=== PATIENT | female | born 1940 | race Caucasian/White ===

== ENCOUNTER 2016-10-06 08:23 | Emergency (ER) | payer MEDICARE, OTHER ==
[~2016-10-06] VITALS: Ht 165.1 cm; Wt 50.3 kg
[~2016-10-06 08:23] MED LIST: ACET-10 PO; AMLO10TA2 PO; ATOR10TA60 PO; CETI10TA16 PO; CHOL100013 PO; CYAN10005 PO; CYAN1TAB19 PO; DIAZ2TAB PO; DIAZ2TAB3 PO; DIVA500T17 PO; HYDR25TA PO; HYDR50CA2 PO; IMIP25TA PO; IMIP25TA35 PO; INSU100I17 SQ; INSU100V13 SQ; LEVO1CAP3 PO; LISI40TA PO; LOPE2CAP PO; LORA10TA3 PO; METF750T2 PO; MIRT15TA3 PO; NEOM1PAC TP; POTA10TA31 PO; PRAV40TA2 PO; PSYL0.526 PO; PSYL1PAC PO; RISP2TAB3 PO; SENN8.6T99 PO
[2016-10-06 08:29] VITALS: BP 187/79
--- NOTE | 2016-10-06 08:49 | PHYS DOC ---
Past Medical History Past Medical History: Depression, Diabetes-Type II, Hypertension Additional Past Medical Histor: INSOMNIA, HYPOKALEMIA Past Surgical History: Other Additional Past Surgical Histo: HERNIA REPAIR Alcohol Use: None Drug Use: None Adult General Chief Complaint Chief Complaint: MECHANICAL FALL HPI HPI Patient is a 76 year old female presenting to the emergency department for evaluation of facial and head pain status post fall shortly prior to arrival. She says that her shoes do not fit very well and she tripped over her own feet and fell forward landing on her knees bilaterally and her face. She denies any loss of consciousness and she denies taking any blood thinners. She has multiple abrasions and says that her tetanus status is up-to-date. She is pleasant and in no obvious distress with normal vital signs. She was refusing anything for pain when offered. Review of Systems Review of Systems Constitutional: Denies fever or chills [] Eyes: Denies change in visual acuity, redness, or eye pain [] HENT: Denies nasal congestion or sore throat [] Respiratory: Denies cough or shortness of breath [] Cardiovascular: No additional information not addressed in HPI [] GI: Denies abdominal pain, nausea, vomiting, bloody stools or diarrhea [] : Denies dysuria or hematuria [] Musculoskeletal: Denies back pain or joint pain [] Integument: + abrasions Neurologic: + headache. No focal weakness or sensory changes [] Allergies Allergies Allergies Coded Allergies Type Severity Reaction Last Updated Verified No Known Drug Allergies 05/23/14 No Physical Exam Physical Exam Constitutional: Well developed, well nourished, no acute distress, non-toxic appearance. [] HENT: Normocephalic, right periorbital contusion with infraorbital abrasion Eyes: PERRLA, EOMI, conjunctiva normal, no discharge. [] Neck: Normal range of motion, no tenderness, supple, no stridor. [] Cardiovascular:Heart rate regular rhythm, no murmur [] Lungs & Thorax: Bilateral breath sounds clear to auscultation [] Abdomen: Bowel sounds normal, soft, no tenderness, no masses, no pulsatile masses. [] Skin: Abrasions to bilateral knees Back: No tenderness, no CVA tenderness. [] Extremities: Good range of motion of all joints with no limitation and range of motion Neurologic: Alert and oriented X 3, normal motor function, normal sensory function, no focal deficits noted. [] Current Patient Data Vital Signs Vital Signs Date Time Temp Pulse Resp B/P (MAP) Pulse Ox O2 Delivery O2 Flow Rate FiO2 10/06/16 08:29 98.3 100 20 187/79 (115) 95 Room Air 98.3 EKG EKG [] Radiology/Procedures Radiology/Procedures Indication fall. Head and neck pain. Injury. The head and cervical spine were evaluated. Images of the cervical spine were reformatted in the coronal and sagittal planes. Note is made of a previous examination of the head 02/26/2015. CT head: Findings No acute or significant calvarial finding is seen. The visualized paranasal sinuses appear normal. There is no subdural or epidural hematoma. There is underlying atrophy. Lucencies, compatible with microvascular disease, are noted in the deep white matter similar to the previous exam. Acute finding is not seen. There has not been a significant change compared to the previous exam. CT cervical spine: Findings The lung apices are clear. There are nodules in both lobes of the thyroid. These are probably incidental but could be further evaluated with nonemergent ultrasound. The appearance is similar to a study 02/26/2015. A significant soft tissue finding in the neck is not seen. Review of axial images shows no fracture. There are degenerative changes in the cervical spine. Review of reformatted images in the coronal and sagittal planes confirms mild degenerative change but shows no evidence of fracture IMPRESSION: Chronic changes in the head. No acute finding seen. Chronic spondylitic changes in the cervical spine. No acute finding in the cervical spine seen PQRS Compliance Statement: One or more of the following individualized dose reduction techniques were utilized for this examination: 1. Automated exposure control 2. Adjustment of the mA and/or kV according to patient size 3. Use of iterative reconstruction technique DICTATED and SIGNED BY: LEONOR PRASAD MD DATE: 10/06/16 0902 Course & Med Decision Making Course & Med Decision Making CT head and cervical spine is negative. She is at her neurologic baseline and has no further complaints of she'll be discharged with instructions to be careful when walking by appropriately fitting shoes and follow with her primary care provider to see if she needs any ambulation assistance devices. Patient aware and agreeable with plan and verbalized understanding of the need for short -term follow-up and strict ER return precautions discussed including worsening pain weakness or other general concerns. Dragon Disclaimer Dragon Disclaimer This electronic medical record was generated, in whole or in part, using a voice recognition dictation system. Departure Departure Impression: Primary Impression: Closed head injury Disposition: HOME, SELF-CARE Condition: GOOD Referrals: AIDEN HICKEY MD (PCP) Patient Instructions: Concussion and Brain Injury Problem Qualifiers Primary Impression: Closed head injury Encounter type: initial encounter Qualified Codes: S09.90XA - Unspecified injury of head, initial encounter MARISELA WALKER DO Oct 06, 2016 08:49
--- NOTE | 2016-10-06 09:15 | RAD ---
Indication fall. Head and neck pain. Injury. The head and cervical spine were evaluated. Images of the cervical spine were reformatted in the coronal and sagittal planes. Note is made of a previous examination of the head 02/26/2015. CT head: Findings No acute or significant calvarial finding is seen. The visualized paranasal sinuses appear normal. There is no subdural or epidural hematoma. There is underlying atrophy. Lucencies, compatible with microvascular disease, are noted in the deep white matter similar to the previous exam. Acute finding is not seen. There has not been a significant change compared to the previous exam. CT cervical spine: Findings The lung apices are clear. There are nodules in both lobes of the thyroid. These are probably incidental but could be further evaluated with nonemergent ultrasound. The appearance is similar to a study 02/26/2015. A significant soft tissue finding in the neck is not seen. Review of axial images shows no fracture. There are degenerative changes in the cervical spine. Review of reformatted images in the coronal and sagittal planes confirms mild degenerative change but shows no evidence of fracture IMPRESSION: Chronic changes in the head. No acute finding seen. Chronic spondylitic changes in the cervical spine. No acute finding in the cervical spine seen PQRS Compliance Statement: One or more of the following individualized dose reduction techniques were utilized for this examination: 1. Automated exposure control 2. Adjustment of the mA and/or kV according to patient size 3. Use of iterative reconstruction technique
== END 2016-10-06 09:34 | disposition home or self-care (01) ==
LOC: ER 08:23
DX: S00.11XA Contusion of right eyelid and periocular area, initial encounter (principal); S80.212A Abrasion, left knee, initial encounter; S80.211A Abrasion, right knee, initial encounter; S09.90XA Unspecified injury of head, initial encounter; I10 Essential (primary) hypertension; F32.9 Major depressive disorder, single episode, unspecified; E11.9 Type 2 diabetes mellitus without complications; G47.00 Insomnia, unspecified; W01.0XXA Fall on same level from slipping, tripping and stumbling without subsequent striking against object, initial encounter; Y93.89 Activity, other specified; Y92.89 Other specified places as the place of occurrence of the external cause; Y99.8 Other external cause status
CPT/HCPCS: 70450; 72125; 99284-25

== ENCOUNTER 2018-07-01 22:01 | Emergency (ER) | payer OTHER ==
[~2018-07-01] VITALS: Ht 162.6 cm; Wt 58.1 kg
[~2018-07-01 22:01] MED LIST changes: -AMLO10TA2 PO; +AMLO10TA8 PO; +FLUT16SP NS; +FOLI5TAB PO; +GLIP2.5T4 PO; +HYDR-2761 PO; +INSU100I13 SQ; +LISI-130 PO; -LISI40TA PO; +LOPE2TAB56 PO; +POTA10TA12 PO; +PSYL3.4P PO; +TIZA4TAB PO
--- NOTE | 2018-07-02 00:25 | PHYS DOC ---
Past Medical History Past Medical History: Diabetes-Type II, Hypertension Additional Past Medical Histor: INSOMNIA, HYPOKALEMIA Past Surgical History: Other Additional Past Surgical Histo: HERNIA REPAIR Alcohol Use: None Drug Use: None Adult General Chief Complaint Chief Complaint: ACCIDENTAL INGESTION HPI HPI 78 y/o female presents via EMS after [facility] accidentally gave patient another patient's nighttime medications. Patient received the following mediations: probiotic, atorvastatin, ezetimibe, duloxetine, Mucinex DM , metoprolol, lactulose, gabapentin, and sertraline. Patient denies any complaint. Reports she feels fine. Covering physician at [facility] sent patient to be further evaluated. Review of Systems Review of Systems Constitutional: Denies fever or chills [] Eyes: Denies change in visual acuity, redness, or eye pain [] HENT: Denies nasal congestion or sore throat [] Respiratory: Denies cough or shortness of breath [] Cardiovascular: Denies chest pain or palpitations GI: Denies abdominal pain, nausea, vomiting, or diarrhea [] : Denies dysuria or hematuria [] Musculoskeletal: Denies back pain or joint pain [] Integument: Denies rash or skin lesions [] Neurologic: Denies headache, focal weakness or sensory changes [] Complete systems were reviewed and found to be within normal limits, except as documented in this note. Allergies Allergies Allergies Coded Allergies Type Severity Reaction Last Updated Verified No Known Drug Allergies 05/23/14 No Physical Exam Physical Exam Constitutional: Well developed, well nourished, no acute distress, non-toxic appearance. [] HENT: Normocephalic, atraumatic, oropharynx moist Eyes: PERRL, EOMI, conjunctiva normal, no discharge. [] Neck: Normal range of motion, no tenderness, supple Cardiovascular: Heart rate regular rhythm, no murmur [] Lungs & Thorax: Bilateral breath sounds clear to auscultation [] Abdomen: Soft, no tenderness Skin: Warm, dry, no erythema, no rash. [] Extremities: No tenderness, ROM intact, no edema. [] Neurologic: Alert and oriented X 3, normal motor function, normal sensory function, no focal deficits noted. [] Current Patient Data Vital Signs Vital Signs Date Time Temp Pulse Resp B/P (MAP) Pulse Ox O2 Delivery O2 Flow Rate FiO2 07/02/18 00:45 72 16 109/57 (74) 94 Room Air 07/01/18 23:42 2.0 07/01/18 22:01 98.4 98.4 EKG EKG @ 0002 Sinus bradycardia at 53bpm, NO ST elevation, nonspecific t wave inversion aVL, QRS 86ms, QT/QTc 482/455ms Radiology/Procedures Radiology/Procedures [] Course & Med Decision Making Course & Med Decision Making Patient presents from ECF after accidentally giving patient the wrong medications prior to arrival. Patient denies current complaint. Discussed case with poison control who reports all dosing nontoxic. Recommend short term ED observation for signs of bradycardia and/or hypotension. Patient's vital stable. EKG without acute process. Patient monitored in ED. Patient stable for discharge back to ECF. Discussed findings and plan with patient, who acknowledges understanding and agreement. Dragon Disclaimer Dragon Disclaimer This electronic medical record was generated, in whole or in part, using a voice recognition dictation system. Departure Departure Impression: Primary Impression: Accidental overdose Disposition: HOME, SELF-CARE (back to ECF) Condition: STABLE Referrals: AIDEN HICKEY MD (PCP) Patient Instructions: Overdose, Accidental, Overdose, Adult Additional Instructions: PLEASE DOUBLE CHECK MEDICATIONS TO ENSURE THE CORRECT PATIENT RECEIVES THEIR MEDICATIONS Problem Qualifiers Primary Impression: Accidental overdose Encounter type: initial encounter Qualified Codes: T50.901A - Poisoning by unspecified drugs, medicaments and biological substances, accidental ( unintentional), initial encounter ALISA ABEBE DO Jul 02, 2018 00:25
[2018-07-02 00:45] VITALS: BP 109/57
--- NOTE | 2018-07-02 06:52 | EKG ---
[facility] [address] [place] [address] Test Date: 2018-07-02 Test Time: 00:02:07 Pat Name: DANNY CADENA Department: Room: Gender: F Speech/Language Therapist: : 1940 Requested By: ALISA ABEBE Order Number: [id number] Reading MD: Colin Salazar MD Measurements Intervals [place] Rate: 53 P: 39 ME: 184 QRS: -22 QRSD: 86 T: 119 QT: 482 QTc: 455 Interpretive Statements SINUS RHYTHM NON-SPECIFIC ST/T CHANGES Electronically Signed On 07-02-2018 11:24:28 [facility] [employer] by Colin Salazar MD
== END 2018-07-02 02:10 | disposition home or self-care (01) ==
LOC: ER 22:01
DX: T46.6X1A Poisoning by antihyperlipidemic and antiarteriosclerotic drugs, accidental (unintentional), initial encounter (principal); T43.211A Poisoning by selective serotonin and norepinephrine reuptake inhibitors, accidental (unintentional), initial encounter; T48.4X1A Poisoning by expectorants, accidental (unintentional), initial encounter; T44.7X1A Poisoning by beta-adrenoreceptor antagonists, accidental (unintentional), initial encounter; T47.3X1A Poisoning by saline and osmotic laxatives, accidental (unintentional), initial encounter; T42.6X1A Poisoning by other antiepileptic and sedative-hypnotic drugs, accidental (unintentional), initial encounter; T43.221A Poisoning by selective serotonin reuptake inhibitors, accidental (unintentional), initial encounter; T50.991A Poisoning by other drugs, medicaments and biological substances, accidental (unintentional), initial encounter; I10 Essential (primary) hypertension; E11.9 Type 2 diabetes mellitus without complications; Y92.89 Other specified places as the place of occurrence of the external cause
CPT/HCPCS: 93005; 99284; 99285

== ENCOUNTER 2018-07-02 04:44 | Emergency (ER) | payer OTHER ==
[~2018-07-02] VITALS: Ht 152.4 cm; Wt 58.1 kg
--- NOTE | 2018-07-02 06:10 | PHYS DOC ---
Past Medical History Past Medical History: Dementia, Diabetes-Type II, High Cholesterol, Hypertension Additional Past Medical Histor: INSOMNIA, HYPOKALEMIA Past Surgical History: Other Additional Past Surgical Histo: HERNIA REPAIR Additional Information: Nonsmoker Alcohol Use: None Drug Use: None Adult General Chief Complaint Chief Complaint: ALTERED MENTAL STATUS HPI HPI 78-year-old female presents for repeat visit to the ED after patient had previously been evaluated for accidental ingestion of another retirement resident's medication earlier tonight. Patient was provided with another patient's medications by retirement staff who afterwards realized the medication error and sent patient to ED for evaluation. Patient had been fully evaluated and deemed medically stable for discharge. Medical transport was utilized to transport patient back to facility. Unfortunately they were unable to get anyone to respond to the front door to return patient and did not answer multiple phone calls by both our ED staff and medical transport. Patient therefore was returned to ED. Patient denies current complaint. HPI limited due to history of dementia. Review of Systems Review of Systems ROS limited due to dementia Allergies Allergies Allergies Coded Allergies Type Severity Reaction Last Updated Verified No Known Drug Allergies 05/23/14 No Physical Exam Physical Exam Constitutional: Well developed, well nourished, no acute distress, non-toxic appearance. [] HENT: Normocephalic, atraumatic, oropharynx moist Eyes: PERRL, EOMI, conjunctiva normal, no discharge. [] Neck: Normal range of motion, supple Cardiovascular: Bradycardia, CR < 2 sec Lungs & Thorax: Bilateral breath sounds clear to auscultation [] Abdomen: Soft, no tenderness, Skin: Warm, dry, no erythema, no rash. [] ] Extremities: No tenderness, ROM intact Neurologic: Alert and oriented, normal motor function, normal sensory function, no focal deficits noted. [] EKG EKG [] Radiology/Procedures Radiology/Procedures [] Course & Med Decision Making Course & Med Decision Making Patient presents with history of accidental overdose and after medical evaluation returned due to medical transport being unable to get into nursing facility and nursing facility not answering multiple phone calls. Patient is stable condition. Denies complaint. Ultimately able to contact facility after police sent to facility to do check. Awaiting medical transport back to facility. Patient stable for discharge with outpatient follow-up with PCP. Discussed findings and plan with patient, who acknowledges understanding and agreement. Isreal Disclaimer Dragon Disclaimer This electronic medical record was generated, in whole or in part, using a voice recognition dictation system. Departure Departure Impression: Primary Impression: Accidental overdose Disposition: HOME, SELF-CARE (back to ECF) Condition: STABLE Referrals: AIDEN HICKEY MD (PCP) Patient Instructions: Overdose, Accidental, Overdose, Adult Problem Qualifiers Primary Impression: Accidental overdose Encounter type: subsequent encounter Qualified Codes: T50.901D - Poisoning by unspecified drugs, medicaments and biological substances, accidental ( unintentional), subsequent encounter ALISA ABEBE DO Jul 02, 2018 06:10
[2018-07-02 10:16] VITALS: BP 146/68
== END 2018-07-02 10:35 | disposition home or self-care (01) ==
LOC: ER 04:44
DX: T50.901D Poisoning by unspecified drugs, medicaments and biological substances, accidental (unintentional), subsequent encounter (principal); R41.82 Altered mental status, unspecified; E78.00 Pure hypercholesterolemia, unspecified; E11.9 Type 2 diabetes mellitus without complications; I10 Essential (primary) hypertension; F03.90 Unspecified dementia, unspecified severity, without behavioral disturbance, psychotic disturbance, mood disturbance, and anxiety
CPT/HCPCS: 99284

== ENCOUNTER 2018-08-06 16:19 | Emergency (ER) | payer OTHER ==
[~2018-08-06] VITALS: Ht 162.6 cm; Wt 64.4 kg
--- NOTE | 2018-08-06 16:38 | PHYS DOC ---
Past Medical History Past Medical History: Dementia, Diabetes-Type II, High Cholesterol, Hypertension Additional Past Medical Histor: INSOMNIA, HYPOKALEMIA Past Surgical History: Other Additional Past Surgical Histo: HERNIA REPAIR Alcohol Use: None Drug Use: None Adult General Chief Complaint Chief Complaint: MECHANICAL FALL HPI HPI Patient is a 78 year old female presents to the ED complaining of fall off of commode this morning. Patient lives at [facility]. Patient has a history of falls. Patient states she lost her balance and fell off the stool. Complains of pain to left hip and low back. Describes her pain as sharp. Rates her pain as 6/10. States she is unsure if she hit her head. Patient able to ambulate with assistance in the ED. Unsure if she hit her head. Denies LOC, vision changes, nausea/vomiting, use of blood thinners or symptoms prior to fall. Review of Systems Review of Systems Constitutional: Denies fever or chills [] Eyes: Denies change in visual acuity, redness, or eye pain [] HENT: Denies nasal congestion or sore throat [] Respiratory: Denies cough or shortness of breath [] Cardiovascular: No additional information not addressed in HPI [] GI: Denies abdominal pain, nausea, vomiting, bloody stools or diarrhea [] : Denies dysuria or hematuria [] Musculoskeletal: Complains of back and left hip pain. Integument: Denies rash or skin lesions [] Neurologic: Denies headache, focal weakness or sensory changes [] All other systems were reviewed and found to be within normal limits, except as documented in this note. Current Medications Current Medications Current Medications Medications (Trade) Dose Ordered Sig/Thania Start Time Stop Time Status Last Admin Dose Admin Acetaminophen/ Hydrocodone Bitart (Lortab 5/325) 1 tab 1X ONCE 08/06/18 18:45 08/06/18 18:46 DC 08/06/18 18:44 1 TAB Allergies Allergies Allergies Coded Allergies Type Severity Reaction Last Updated Verified No Known Drug Allergies 05/23/14 No Physical Exam Physical Exam Constitutional: Well developed, well nourished, no acute distress, non-toxic appearance. [] HENT: Normocephalic, atraumatic, bilateral external ears normal, oropharynx moist, no oral exudates, nose normal. [] Eyes: PERRLA, EOMI, conjunctiva normal, no discharge. [] Neck: Normal range of motion, no tenderness, supple, no stridor. [] Cardiovascular:Heart rate regular rhythm, no murmur [] Lungs & Thorax: Bilateral breath sounds clear to auscultation [] Abdomen: Bowel sounds normal, soft, no tenderness, no masses, no pulsatile masses. [] Skin: Warm, dry, no erythema, no rash. [] Back: mild left lumbar paraspinal tenderness. FROM. NV intact. No overlying skin changes. no CVA tenderness. [] Extremities: mild left lateral hip tenderness FROM. NV intact. no overlying skin changes. no cyanosis, no clubbing, ROM intact, no edema. [] Neurologic: Alert and oriented X 3, normal motor function, normal sensory function, no focal deficits noted. [] Psychologic: Affect normal, judgement normal, mood normal. [] Current Patient Data Vital Signs Vital Signs Date Time Temp Pulse Resp B/P (MAP) Pulse Ox O2 Delivery O2 Flow Rate FiO2 08/06/18 19:44 18 95 Room Air 08/06/18 19:30 74 08/06/18 16:19 98.3 154/73 (100) 98.3 EKG EKG [] Radiology/Procedures Radiology/Procedures []PROCEDURE: CT HEAD AND CERVICAL SPINE WO Examination: CT HEAD AND CERVICAL SPINE WO History: MULTIPLE FALLS, HIT HEAD, PRIORS SENT Comparison/Correlation: 10/06/2016 CT head and cervical spine without contrast Findings: Axial images of the head and cervical spine were obtained without contrast. Sagittal and coronal reformatted images provided. Chronic ischemic changes white matter is notable. No intracranial hemorrhage, midline shift, or mass effect. Cavernous carotid calcifications noted. Globes and optic nerves are unremarkable. Atlantoaxial joint degenerative remodeling is present. Mild C4-5 disc space narrowing. Moderate to severe C5-6 and C6/7 disc space narrowing. Bony encroachment on neural foramina bilaterally is mild. Vertebral body heights are adequate. Visualized soft tissues are unremarkable. Nodular appearance of the thyroid gland noted. Impression: No intracranial hemorrhage. No fracture or malalignment. Course & Med Decision Making Course & Med Decision Making Pertinent Labs and Imaging studies reviewed. (See chart for details) Imaging read by attending physician, Dr. Siddiqui. [Discussed imaging findings with patient. Patient's pain improved in the ED. States she is feeling much better. Patient able to ambulate with walker assistance, steady gait in the ED. No focal neuro deficits. Discussed symptomatic treatment and follow-up as needed. Discussed reasons to return to the ED. Patient understands and agrees with plan. Dragon Disclaimer Dragon Disclaimer This electronic medical record was generated, in whole or in part, using a voice recognition dictation system. Departure Departure Impression: Primary Impression: Hip sprain Additional Impression: Lumbar sprain Disposition: HOME, SELF-CARE Condition: IMPROVED Referrals: AIDEN HICKEY MD (PCP) Patient Instructions: Back Pain, Adult, Hip Injury Scripts Hydrocodone/Apap 5-325 (NORCO 5-325 TABLET) 1 Each Tablet 1 TAB PO BID for 4 Days, #8 TAB Prov: IKE NESBITT 08/06/18 Problem Qualifiers IKE NESBITT Aug 06, 2018 16:38
--- NOTE | 2018-08-06 17:13 | RAD ---
Examination: CT HEAD AND CERVICAL SPINE WO History: MULTIPLE FALLS, HIT HEAD, PRIORS SENT Comparison/Correlation: 10/06/2016 CT head and cervical spine without contrast Findings: Axial images of the head and cervical spine were obtained without contrast. Sagittal and coronal reformatted images provided. Chronic ischemic changes white matter is notable. No intracranial hemorrhage, midline shift, or mass effect. Cavernous carotid calcifications noted. Globes and optic nerves are unremarkable. Atlantoaxial joint degenerative remodeling is present. Mild C4-5 disc space narrowing. Moderate to severe C5-6 and C6/7 disc space narrowing. Bony encroachment on neural foramina bilaterally is mild. Vertebral body heights are adequate. Visualized soft tissues are unremarkable. Nodular appearance of the thyroid gland noted. Impression: No intracranial hemorrhage. No fracture or malalignment. PQRS Compliance Statement: One or more of the following individualized dose reduction techniques were utilized for this examination: 1. Automated exposure control 2. Adjustment of the mA and/or kV according to patient size 3. Use of iterative reconstruction technique Electronically signed by: Tony Renae MD (08/06/2018 5:10 PM) [facility]
[2018-08-06] MEDS ORDERED: HYDR-3164 PO (18:25)
[2018-08-06] MEDS ORDERED: HYDROcodone/APAP 5/325MG 1 TAB TABLET PO ONE (18:45)
[2018-08-06 19:30] VITALS: BP 162/84
--- NOTE | 2018-08-07 07:55 | RAD ---
Three-view lumbar spine series Clinical indications: Low back pain. No known injury. FINDINGS: There is an old compression fracture of T12 which has been treated with methylmethacrylate. This is unchanged from an MRI study of lumbar spine dated March 10, 2018. There is a new mild compression fracture of the superior endplate of L3. No discitis or lytic process is seen. Transverse processes are intact. Mild dextroscoliosis is seen. IMPRESSION: New mild compression fracture of the superior endplate of L3. Electronically signed by: Wisam Mcghee MD (08/07/2018 7:52 AM) [facility]
--- NOTE | 2018-08-07 08:00 | RAD ---
Left hip with pelvis radiograph 08/06/2018 4:51 PM INDICATION: Left hip pain with no known injury COMPARISON: None available. TECHNIQUE: AP view the pelvis and 2 dedicated views the left hip are provided. FINDINGS: There is no acute fracture or dislocation. Bone mineralization is within normal limits. There is mild joint space narrowing involving the hips without significant marginal osteophytosis or subcortical sclerosis. Regional soft tissues are within normal limits. There is no soft tissue gas or osseous erosion. Sacroiliac joints are well aligned. Mild degenerative changes of the lower lumbar spine are noted. Vascular calcifications are present. Phleboliths are identified within the pelvis. IMPRESSION: No acute fracture or dislocation. Mild osteoarthrosis of the hips. Electronically signed by: Stacie Devlin MD (08/07/2018 7:58 AM) [id number]
== END 2018-08-06 19:51 | disposition home or self-care (01) ==
LOC: ER 16:19
DX: S33.5XXA Sprain of ligaments of lumbar spine, initial encounter (principal); S73.102A Unspecified sprain of left hip, initial encounter; E78.00 Pure hypercholesterolemia, unspecified; E11.9 Type 2 diabetes mellitus without complications; I10 Essential (primary) hypertension; F03.90 Unspecified dementia, unspecified severity, without behavioral disturbance, psychotic disturbance, mood disturbance, and anxiety; W17.89XA Other fall from one level to another, initial encounter; Y93.89 Activity, other specified; Y92.89 Other specified places as the place of occurrence of the external cause; Y99.8 Other external cause status
CPT/HCPCS: 70450; 72100; 72125; 73502; 99284

== ENCOUNTER 2018-09-13 08:03 | Emergency (ER) | payer OTHER ==
[~2018-09-13] VITALS: Ht 157.5 cm; Wt 60.8 kg
[~2018-09-13 08:03] MED LIST changes: +HYDR-3164 PO
[2018-09-13] MEDS ORDERED: fentaNYL PF VIAL 100 MCG/2 ML VIAL IV PRN (08:30)
--- NOTE | 2018-09-13 08:34 | PHYS DOC ---
Past Medical History Past Medical History: Depression, Diabetes-Type II Additional Past Medical Histor: hyperlipidemia, insomnia Past Surgical History: Other Additional Past Surgical Histo: back surgery Alcohol Use: None Drug Use: None Adult General Chief Complaint Chief Complaint: MECHANICAL FALL HPI HPI Patient is a 78 year old female with history of diabetes type 2, depression, who presents today to the ED to be evaluated for right hip pain rated at 1 out of 10 described as sharp and intermittent worse on weight-bearing and laying on the right side. Patient states this morning she slid out of bed and fell to the floor patient denies hitting her head on the ground. Denies any loss of consciousness. She states when she tried to get up from the floor she fell again . Denies any neck pain, no low back pain. Denies being on any anticoagulants. She comes from assisted living. Review of Systems Review of Systems Constitutional: Denies fever or chills [] Eyes: Denies change in visual acuity, redness, or eye pain [] HENT: Denies nasal congestion or sore throat [] Respiratory: Denies cough or shortness of breath [] Cardiovascular: No additional information not addressed in HPI [] GI: Denies abdominal pain, nausea, vomiting, bloody stools or diarrhea [] : Denies dysuria or hematuria [] Musculoskeletal: Reports right hip pain, denies low back pain, neck pain or mid back pain. Integument: Denies rash or skin lesions [] Neurologic: Denies headache, focal weakness or sensory changes [] All other systems were reviewed and found to be within normal limits, except as documented in this note. Current Medications Current Medications Current Medications Medications (Trade) Dose Ordered Sig/[facility] Start Time Stop Time Status Last Admin Dose Admin Fentanyl Citrate (Fentanyl 2ml Vial) 50 mcg PRN Q15MIN PRN 09/13/18 08:30 09/14/18 08:29 09/13/18 08:59 50 MCG Allergies Allergies Allergies Coded Allergies Type Severity Reaction Last Updated Verified No Known Drug Allergies 05/23/14 No Physical Exam Physical Exam Constitutional: Well developed, well nourished, no acute distress, non-toxic appearance. [] HENT: Normocephalic, atraumatic, bilateral external ears normal, oropharynx moist, no oral exudates, nose normal. [] Eyes: PERRLA, EOMI, conjunctiva normal, no discharge. [] Neck: Normal range of motion, no tenderness, supple, no stridor. [] Cardiovascular:Heart rate regular rhythm, no murmur [] Lungs & Thorax: Bilateral breath sounds clear to auscultation [] Abdomen: Bowel sounds normal, soft, no tenderness, no masses, no pulsatile masses. [] Skin: Warm, dry, no erythema, rash noted on bilateral buttocks and inner aspect of the thighs, patient states she was told she has shingles. Back: No tenderness, no CVA tenderness. [] Extremities: Diffuse tenderness on the right lateral hip. Limited range of motion to the right hip especially external rotation due to pain. Trace edema noted to the left lower extremity that appears chronic. +2 bilateral pedal pulses. Neurologic: Alert and oriented X 3, normal motor function, normal sensory function, no focal deficits noted. [] Psychologic: Affect normal, judgement normal, mood normal. [] Current Patient Data Vital Signs Vital Signs Date Time Temp Pulse Resp B/P (MAP) Pulse Ox O2 Delivery O2 Flow Rate FiO2 09/13/18 09:24 16 Nasal Cannula 2.0 09/13/18 08:59 97 09/13/18 08:11 98.0 91 171/71 (104) 98.0 Lab Values Laboratory Tests Test 09/13/18 08:15 09/13/18 10:00 White Blood Count 8.7 x10^3/uL (4.0-11.0) Red Blood Count 4.81 x10^6/uL (3.50-5.40) Hemoglobin 13.8 g/dL (12.0-15.5) Hematocrit 42.6 % (36.0-47.0) Mean Corpuscular Volume 89 fL (79-100) Mean Corpuscular Hemoglobin 29 pg (25-35) Mean Corpuscular Hemoglobin Concent 33 g/dL (31-37) Red Cell Distribution Width 14.5 % (11.5-14.5) Platelet Count 246 x10^3/uL (140-400) Neutrophils (%) (Auto) 74 % (31-73) H Lymphocytes (%) (Auto) 19 % (24-48) L Monocytes (%) (Auto) 6 % (0-9) Eosinophils (%) (Auto) 1 % (0-3) Basophils (%) (Auto) 0 % (0-3) Neutrophils # (Auto) 6.4 x10^3uL (1.8-7.7) Lymphocytes # (Auto) 1.7 x10^3/uL (1.0-4.8) Monocytes # (Auto) 0.5 x10^3/uL (0.0-1.1) Eosinophils # (Auto) 0.0 x10^3/uL (0.0-0.7) Basophils # (Auto) 0.0 x10^3/uL (0.0-0.2) Sodium Level 145 mmol/L (136-145) Potassium Level 3.4 mmol/L (3.5-5.1) L Chloride Level 103 mmol/L (98-107) Carbon Dioxide Level 33 mmol/L (21-32) H Anion Gap 9 (6-14) Blood Urea Nitrogen 20 mg/dL (7-20) Creatinine 0.7 mg/dL (0.6-1.0) Estimated GFR (Cockcroft-Gault) 80.9 BUN/Creatinine Ratio 29 (6-20) H Glucose Level 192 mg/dL (70-99) H Lactic Acid Level 2.0 mmol/L (0.4-2.0) Calcium Level 9.5 mg/dL (8.5-10.1) Magnesium Level 2.2 mg/dL (1.8-2.4) Total Bilirubin 0.4 mg/dL (0.2-1.0) Aspartate Amino Transferase (AST) 19 U/L (15-37) Alanine Aminotransferase (ALT) 41 U/L (14-59) Alkaline Phosphatase 75 U/L (46-116) Troponin I Quantitative 0.036 ng/mL (0.000-0.055) DD-Fld-Q-Type Natriuretic Peptide 937 pg/mL (0-449) H Total Protein 6.5 g/dL (6.4-8.2) Albumin 3.6 g/dL (3.4-5.0) Albumin/Globulin Ratio 1.2 (1.0-1.7) Urine Collection Type Unknown Urine Color Yellow Urine Clarity Clear Urine pH 6.5 Urine Specific Redig 1.025 Urine Protein 100 mg/dL (NEG-TRACE) Urine Glucose (UA) >=1000 mg/dL (NEG) Urine Ketones (Stick) Negative mg/dL (NEG) Urine Blood Negative (NEG) Urine Nitrite Negative (NEG) Urine Bilirubin Negative (NEG) Urine Urobilinogen Dipstick 1.0 mg/dL (0.2 mg/dL) Urine Leukocyte Esterase Negative (NEG) Urine RBC 0 /HPF (0-2) Urine WBC Occ /HPF (0-4) Urine Squamous Epithelial Cells Occ /LPF Urine Amorphous Sediment Present /HPF Urine Bacteria 0 /HPF (0-FEW) Urine Mucus Slight /LPF Urine Opiates Screen Neg (NEG) Urine Methadone Screen Neg (NEG) Urine Barbiturates Neg (NEG) Urine Phencyclidine Screen Neg (NEG) Urine Amphetamine/Methamphetamine Neg (NEG) Urine Benzodiazepines Screen Neg (NEG) Urine Cocaine Screen Neg (NEG) Urine Cannabinoids Screen Neg (NEG) Urine Ethyl Alcohol Neg (NEG) Laboratory Tests 09/13/18 08:15 Laboratory Tests 09/13/18 08:15 EKG EKG 08:[address] Mann sinus rhythm HR 86 no STEMI Radiology/Procedures Radiology/Procedures []PROCEDURE: HIP RIGHT 2V WITH PELVIS Examination: 2 views of the right hip and frontal view the pelvis HISTORY: History of fall, hip pain COMPARISON: 08/06/2018. FINDINGS: The right femoral head is within the stomach. There is no acute fracture or dislocation identified.Moderate joint space loss identified in the bilateral hip joints. IMPRESSION: 1. No acute osseous findings. 2. Moderate degenerative changes bilateral hip joints. Electronically signed by: Gianfranco De La Cruz MD (09/13/2018 9:17 AM) [facility] DICTATED and SIGNED BY: GIANFRANCO DE LA CRUZ MD DATE: 09/13/18916 PROCEDURE: PORTABLE CHEST 1V EXAM: CHEST 1 VIEW History: Fall, pain COMPARISON: 10/01/2014 TECHNIQUE: Single portable radiograph of the chest FINDINGS: The cardiac silhouette is unremarkable. The lungs are clear bilaterally. The costophrenic sulci are clear and well demarcated. Mild prominent appearing right hilum probably prominent appearing pulmonary artery similar to prior exam. IMPRESSION: No radiographic evidence of an acute cardiopulmonary process. Electronically signed by: Gianfranco De La Cruz MD (09/13/2018 9:18 AM) [facility] DICTATED and SIGNED BY: GIANFRANCO DE LA CRUZ MD DATE: 09/13/18917 Course & Med Decision Making Course & Med Decision Making Pertinent Labs and Imaging studies reviewed. (See chart for details) This is a 78-year-old female patient presenting to the ED today complaining of right hip pain status post falling, no loss of consciousness. Chest x-ray is negative for any acute findings, right hip x-rays including pelvic-negative for any acute findings. Labs are negative. EKG is negative. Urine analysis is negative, patient will be sent back to the assisted living she came from. Follow-up with her own PCP. Dragon Disclaimer Dragon Disclaimer This electronic medical record was generated, in whole or in part, using a voice recognition dictation system. Departure Departure Impression: Primary Impression: Acute right hip pain Additional Impression: Fall Disposition: HOME, SELF-CARE Condition: STABLE Referrals: AIDEN HICKEY MD (PCP) follow up in the course of this week JESUS MAYA MD follow up in 1 week Patient Instructions: Fall Prevention and Home Safety, Hip Pain Additional Instructions: You were evaluated in the emergency room for right hip pain after falling, your right hip x-rays including pelvis are negative for any acute findings, your lab work is negative for any acute findings. Please follow-up with your own doctor or the provided orthopedic doctor in the course of this week. Come back to the ED at any point symptoms worsen. Problem Qualifiers Additional Impression: Fall Encounter type: initial encounter Qualified Codes: W19.XXXA - Unspecified fall, initial encounter ELLY PAINTER TARIFF INSPECTOR September 13, 2018 08:34
[2018-09-13 08:44] LABS: BASO % 0 % (0-3); EOS % 1 % (0-3); HEMATOCRIT 42.6 % (36.0-47.0); HEMOGLOBIN 13.8 g/dL (12.0-15.5); LYMPH # 1.7 x10^3/uL (1.0-4.8); LYMPH % 19 % (24-48); MEAN CORPUSCULAR HEMOGLOBIN 29 pg (25-35); MEAN CORPUSCULAR HGB CONC 33 g/dL (31-37); MEAN CORPUSCULAR VOLUME 89 fL (79-100); MONO # 0.5 x10^3/uL (0.0-1.1); MONO % 6 % (0-9); NEUT # 6.4 x10^3uL (1.8-7.7); NEUT % 74 % (31-73); PLATELET COUNT 246 x10^3/uL (140-400); RED BLOOD COUNT 4.81 x10^6/uL (3.50-5.40); RED CELL DISTRIBUTION WIDTH 14.5 % (11.5-14.5); WHITE BLOOD COUNT 8.7 x10^3/uL (4.0-11.0)
[2018-09-13 08:56] LABS: CALCIUM 9.5 mg/dL (8.5-10.1); CREATININE 0.7 mg/dL (0.6-1.0); GFR 80.9; POTASSIUM 3.4 mmol/L (3.5-5.1)
[2018-09-13 09:08] LABS: ALBUMIN 3.6 g/dL (3.4-5.0); ALBUMIN/GLOBULIN RATIO 1.2 (1.0-1.7); MAGNESIUM 2.2 mg/dL (1.8-2.4); TOTAL BILIRUBIN 0.4 mg/dL (0.2-1.0); TOTAL PROTEIN 6.5 g/dL (6.4-8.2)
--- NOTE | 2018-09-13 09:19 | RAD ---
Examination: 2 views of the right hip and frontal view the pelvis HISTORY: History of fall, hip pain COMPARISON: 08/06/2018. FINDINGS: The right femoral head is within the stomach. There is no acute fracture or dislocation identified.Moderate joint space loss identified in the bilateral hip joints. IMPRESSION: 1. No acute osseous findings. 2. Moderate degenerative changes bilateral hip joints. Electronically signed by: Gianfranco De La Cruz MD (09/13/2018 9:17 AM) [facility]
--- NOTE | 2018-09-13 09:21 | RAD ---
EXAM: CHEST 1 VIEW History: Fall, pain COMPARISON: 10/01/2014 TECHNIQUE: Single portable radiograph of the chest FINDINGS: The cardiac silhouette is unremarkable. The lungs are clear bilaterally. The costophrenic sulci are clear and well demarcated. Mild prominent appearing right hilum probably prominent appearing pulmonary artery similar to prior exam. IMPRESSION: No radiographic evidence of an acute cardiopulmonary process. Electronically signed by: Gianfranco De La Cruz MD (09/13/2018 9:18 AM) [facility]
[2018-09-13 11:31] LABS: BILIRUBIN,URINE NEGATIVE (NEG); CLARITY,URINE CLEAR; COLOR,URINE YELLOW; NITRITE,URINE NEGATIVE (NEG); PH,URINE 6.5; PROTEIN,URINE 100 mg/dL (NEG-TRACE)
[2018-09-13 11:57] LABS: AMPHETAMINE/METHAMPHETAMINE NEG (NEG); BARBITURATES NEG (NEG); BENZODIAZEPINES NEG (NEG); CANNABINOIDS NEG (NEG); COCAINE NEG (NEG); METHADONE NEG (NEG); OPIATES NEG (NEG); PHENCYCLIDINE NEG (NEG); SQUAMOUS EPITHELIAL CELL,UR OCC /LPF
[2018-09-13 11:58] LABS: BACTERIA,URINE 0 /HPF (0-FEW); RBC,URINE 0 /HPF (0-2); WBC,URINE OCC /HPF (0-4)
[2018-09-13 11:59] LABS: AMORPHOUS SEDIMENT,UR PRESENT /HPF
[2018-09-13 12:05] VITALS: BP 171/84
--- NOTE | 2018-09-14 06:53 | EKG ---
[facility] [address] [place] [address] Test Date: 2018-09-13 Test Time: 08:53:53 Pat Name: DANNY CADENA Department: Room: Gender: F [employer] Operator: : [id number] Requested By: ELLY PAINTER Order Number: [id number] Reading MD: Holland Roe Measurements Intervals [place] Rate: 86 P: 59 MI: 122 QRS: -34 QRSD: 94 T: 136 QT: 374 QTc: 451 Interpretive Statements SINUS RHYTHM ABNORMAL LEFT AXIS DEVIATION LEFT ANTERIOR FASCICULAR BLOCK LVH WITH REPOLARIZATION ABNORMALITY ABNORMAL ECG Electronically Signed On 10-02-2018 12:47:12 CDT by Holland Roe
== END 2018-09-13 13:33 | disposition home or self-care (01) ==
LOC: ER 08:03
DX: M25.551 Pain in right hip (principal); G89.11 Acute pain due to trauma; R07.89 Other chest pain; I44.4 Left anterior fascicular block; R94.31 Abnormal electrocardiogram [ECG] [EKG]; F32.9 Major depressive disorder, single episode, unspecified; E11.9 Type 2 diabetes mellitus without complications; E78.5 Hyperlipidemia, unspecified; W06.XXXA Fall from bed, initial encounter; Y93.89 Activity, other specified; Y92.89 Other specified places as the place of occurrence of the external cause; Y99.8 Other external cause status
CPT/HCPCS: 36415; 71045; 73502; 80053; 80307; 81001; 83605; 83735; 83880; 84484; 85025; 93005; 96374; 99285; J3010